=== PATIENT | female | born 1965 | race Caucasian/White ===

== ENCOUNTER → 2016-11-03 | Outpatient (CLI) | payer BC ==
--- NOTE | 2016-11-05 11:13 | MM ---
Reason for exam: screening (asymptomatic). Last mammogram was performed 3 years and 3 months ago. History: Patient is postmenopausal. Family history of breast cancer in grandmother at age 75 and breast cancer in mother at age 55. Physical Findings: A clinical breast exam by your physician is recommended on an annual basis and results should be correlated with mammographic findings. MG Screening Mammo w CAD Bilateral CC and MLO view(s) were taken. Prior study comparison: August 15, 2013, bilateral MG screening mammo w CAD. The breast tissue is heterogeneously dense. This may lower the sensitivity of mammography. There is a 6mm obscured mass in the retroaerolar, slightly lateral right breast. This finding is changed when compared with previous exams. ASSESSMENT: Incomplete: need additional imaging evaluation, BI-RAD 0 RECOMMENDATION: Special view mammogram and ultrasound of the right breast. [facility] will attempt to contact patient to return for supplemental views and ultrasound.
== END | disposition home or self-care (01) ==
LOC: RADMAMWWP 16:22
PROVIDERS: ATTEND Family Medicine
DX: Z12.31 Encounter for screening mammogram for malignant neoplasm of breast (principal)

== ENCOUNTER → 2016-11-18 | Outpatient (CLI) | payer BC ==
--- NOTE | 2016-11-19 10:00 | MM ---
Reason for exam: additional evaluation requested from abnormal screening. Last mammogram was performed less than 1 month ago. History: Patient is postmenopausal. Family history of breast cancer in grandmother at age 75 and breast cancer in mother at age 55. Physical Findings: Nurse Summary: 0.5cm nodule in the right breast behind nipple (nurse kp). MG Work Up Mamm w CAD RT Spot compression CC with magnification, spot compression MLO with magnification, and LM view(s) were taken of the right breast. Prior study comparison: November 03, 2016, bilateral MG screening mammo w CAD. August 15, 2013, bilateral MG screening mammo w CAD. There is no discrete abnormality including area of concern for which an ultrasound is recommended. These results were verbally communicated with the patient and result sheet given to the patient on 11/18/16. ASSESSMENT: Incomplete: need additional imaging evaluation, BI-RAD 0 RECOMMENDATION: Ultrasound of the right breast.
--- NOTE | 2016-11-19 10:01 | USB ---
Reason for exam: additional evaluation requested from abnormal screening. History: Patient is postmenopausal. Family history of breast cancer in grandmother at age 75 and breast cancer in mother at age 55. US Breast Workup Limited RT Right breast ultrasound demonstrates no cystic or solid lesion seen. These results were verbally communicated with the patient and result sheet given to the patient on 11/18/16. ASSESSMENT: Negative, BI-RAD 1 RECOMMENDATION: Return to routine screening mammogram schedule for both breasts.
== END | disposition home or self-care (01) ==
LOC: RADMAMWWP 13:58
PROVIDERS: ATTEND Family Medicine
DX: R92.8 Other abnormal and inconclusive findings on diagnostic imaging of breast (principal)
CPT/HCPCS: 76642; G0206

== ENCOUNTER → 2018-07-28 | Outpatient (CLI) | payer OTHER ==
--- NOTE | 2018-07-29 07:34 | US ---
EXAMINATION TYPE: US thyroid st tissue head/neck DATE OF EXAM: 07/28/2018 COMPARISON: NONE CLINICAL HISTORY: E04.9 Goiter. GLAND SIZE: Right Lobe: 4.2 x 1.5 x 1.4 cm Overall Parenchyma: heterogenous Left Lobe: 4.2 x 0.8 x1.2 cm Overall Parenchyma: heterogeneous Isthmus Thickness: 0.3 cm NODULES RIGHT: # of nodules measured on right: 0 LEFT: # of nodules measured on left: 0 ISTHMUS: # of nodules measured in the isthmus: 0 Bilateral neck scanned, no evidence of lymphadenopathy. IMPRESSION: 1. Normal thyroid ultrasound
== END | disposition home or self-care (01) ==
LOC: RADUSWWP 15:41
PROVIDERS: ATTEND Family Medicine
DX: E04.9 Nontoxic goiter, unspecified (principal)
CPT/HCPCS: 76536

== ENCOUNTER → 2019-01-10 | Outpatient (CLI) | payer OTHER ==
--- NOTE | 2019-01-12 12:19 | MM ---
Reason for exam: screening (asymptomatic). Last mammogram was performed 2 years and 2 months ago. History: Patient is postmenopausal. Family history of breast cancer in maternal grandmother at age 75, breast cancer in mother at age 55, and breast cancer in paternal grandmother. Physical Findings: A clinical breast exam by your physician is recommended on an annual basis and results should be correlated with mammographic findings. MG 3D Screening Mammo W/Cad Bilateral CC and MLO view(s) were taken. Prior study comparison: November 18, 2016, right breast MG work up mamm w CAD RT. November 03, 2016, bilateral MG screening mammo w CAD. The breast tissue is heterogeneously dense. This may lower the sensitivity of mammography. Right upper outer quadrant posterior depth 5mm focal asymmetry. Left central middle depth asymmetry. ASSESSMENT: Incomplete: need additional imaging evaluation, BI-RAD 0 RECOMMENDATION: Special view mammogram of both breasts. If lesion persists on supplemental views, image directed ultrasound is recommended. [facility] will attempt to contact patient to return for supplemental views and ultrasound if indicated.
== END | disposition home or self-care (01) ==
LOC: RADMAMWWP 14:47
PROVIDERS: ATTEND Family Medicine
DX: Z12.31 Encounter for screening mammogram for malignant neoplasm of breast (principal); R92.8 Other abnormal and inconclusive findings on diagnostic imaging of breast
CPT/HCPCS: 77063; 77067

== ENCOUNTER → 2019-01-20 | Outpatient (CLI) | payer OTHER ==
--- NOTE | 2019-01-23 08:41 | MM ---
Reason for exam: additional evaluation requested from abnormal screening. Last mammogram was performed less than 1 month ago. History: Patient is postmenopausal. Family history of breast cancer in maternal grandmother at age 75, breast cancer in mother at age 55, and breast cancer in paternal grandmother at age 68. Physical Findings: Nurse Summary: 0.5cm nodule in the left breast at 4:30 (nurse TM). MG 3D Work Up W/Cad LATANYA Bilateral spot compression CC, spot compression MLO, and LM view(s) were taken. Prior study comparison: January 10, 2019, bilateral MG 3d screening mammo w/cad. November 18, 2016, right breast MG work up mamm w CAD RT. There is a subtle 3mm right upper outer quadrant mass 7-8cm from nipple. The previously seen abnormality resolves on additional views and appears as fibroglandular tissue compatible with summation on the left breast. These results were verbally communicated with the patient and result sheet given to the patient on 01/20/19. ASSESSMENT: Incomplete: need additional imaging evaluation, BI-RAD 0 RECOMMENDATION: Ultrasound of both breasts. (right upper outer quadrant, left at palpable)
--- NOTE | 2019-01-23 08:48 | USB ---
Reason for exam: additional evaluation requested from abnormal screening. History: Patient is postmenopausal. Family history of breast cancer in maternal grandmother at age 75, breast cancer in mother at age 55, and breast cancer in paternal grandmother at age 68. US Breast Workup Limited LATANYA Right limited breast ultrasound including focal area of concern, retroareolar and axilla demonstrates no cystic or solid lesion seen. Left limited breast ultrasound including focal area of concern, retroareolar and axilla demonstrates no cystic or solid lesion seen. No suspicious solid or cystic mass. These results were verbally communicated with the patient and result sheet given to the patient on 01/20/19. ASSESSMENT: Probably benign, BI-RAD 3 RECOMMENDATION: Follow-up diagnostic mammogram of the right breast in 6 months.
== END | disposition home or self-care (01) ==
LOC: RADMAMWWP 14:04
PROVIDERS: ATTEND Family Medicine
DX: R92.8 Other abnormal and inconclusive findings on diagnostic imaging of breast (principal)
CPT/HCPCS: 77066; 76642; G0279; 77062

== ENCOUNTER → 2020-04-12 | Outpatient (CLI) | payer OTHER ==
--- NOTE | 2020-04-12 14:19 | MM ---
Reason for exam: additional evaluation requested from prior study. Last mammogram was performed 1 year and 3 months ago. History: Patient is postmenopausal. Family history of breast cancer in maternal grandmother at age 75, breast cancer in mother at age 55, and breast cancer in paternal grandmother at age 68. Physical Findings: Nurse did not find any significant physical abnormalities on exam. MG 3D Diag Mammo W/Cad LATANYA Bilateral CC and MLO view(s) were taken. Prior study comparison: January 20, 2019, bilateral MG 3d work up w/cad LATANYA. January 10, 2019, bilateral MG 3d screening mammo w/cad. November 03, 2016, bilateral MG screening mammo w CAD. There are scattered fibroglandular densities. No significant new findings when compared with previous films. These results were verbally communicated with the patient and result sheet given to the patient on 04/12/20. ASSESSMENT: Benign, BI-RAD 2 RECOMMENDATION: Routine screening mammogram of both breasts in 1 year.
== END | disposition home or self-care (01) ==
LOC: RADMAMWWP 13:31
PROVIDERS: ATTEND Family Medicine
DX: N60.11 Diffuse cystic mastopathy of right breast (principal); N60.12 Diffuse cystic mastopathy of left breast
CPT/HCPCS: 77066; G0279; 77062

== ENCOUNTER → 2022-07-03 | Outpatient (CLI) | payer OTHER ==
--- NOTE | 2022-07-06 19:31 | MM ---
Reason for Exam: Screening (asymptomatic). Last mammogram was performed 2 year(s) and 2 month(s) ago. Patient History: Menarche at age 14. First Full-Term at age 20. Postmenopausal. Paternal grandmother had breast cancer, age 68. Maternal grandmother had breast cancer, age 75. Mother had breast cancer, age 55. Risk Values: Micaela 5 year model risk: 2.4%. NCI Lifetime model risk: 12.7%. Prior Study Comparison: 01/10/2019 Bilateral Screening Mammogram, [facility]. 01/20/2019 Bilateral Diagnostic Mammogram, [facility]. 04/12/2020 Bilateral Diagnostic Mammogram, [facility]. Tissue Density: There are scattered fibroglandular densities. Findings: Analyzed By CAD. There is no suspicious group of microcalcifications or new suspicious mass in either breast. Overall Assessment: Negative, BI-RAD 1 Management: Screening Mammogram of both breasts in 1 year. 1. Patient should continue monthly self breast exams. 2. A clinical breast exam by your physician is recommended on an annual basis. 3. This exam should not preclude additional follow-up of suspicious palpable abnormalities. Electronically signed and approved by: Mita Velásquez M.D. Radiologist
== END | disposition home or self-care (01) ==
LOC: RADMAMWWP 14:38
PROVIDERS: ATTEND Family Medicine
DX: Z12.31 Encounter for screening mammogram for malignant neoplasm of breast (principal); Z78.0 Asymptomatic menopausal state; Z80.3 Family history of malignant neoplasm of breast
CPT/HCPCS: 77063; 77067

== ENCOUNTER → 2023-05-06 | Outpatient (CLI) | payer OTHER ==
--- NOTE | 2023-05-06 21:09 | CTL ---
EXAMINATION TYPE: CT Low Dose Lung DATE OF EXAM: 05/06/2023 4:44 PM CLINICAL INDICATION:Female, 57 years old with history of Z12.2 Lung cancer screening; Former smoker. Pt quit smoking 3yrs ago. 2PPD x30yrs. Cough x3mo and wheezing. , history of tobacco use. COMPARISON: None. TECHNIQUE: Multiple axial non-contrast scans were obtained from approximately the lung apices through the upper abdomen. Coronal and sagittal reformatted images were obtained. Low dose technique was uti lized. CT DLP: 93.5 mGycm, Automated exposure control for dose reduction was used. CT Contrast: Contrast used: None Oral contrast used: None FINDINGS: ======== Lack of intravenous contrast and low dose technique limits the evaluation of the vascular and soft ti ssue structures. LUNGS: No evidence of pulmonary fibrosis. No evidence of focal consolidation, pneumothorax or pleural effusion. Mild centrilobular emphysema changes. Nodules: RUL: Scattered pulmonary nodules image 17 and 18 series 5 measuring 2 mm each. RML: None. RLL: Calcified granuloma image 31 series 5 [place]: 3 mm 2 image 18 series 5, 2 mm image 25 LLL: 6 mm image 40 series 5 AIRWAY: Patent and unremarkable. HEART: Size within normal limits. MEDIASTINUM: No gross evidence of adenopathy. Small hiatal hernia. VASCULATURE: No aortic aneurysm. MUSCULOSKELETAL: No acute osseous abnormalities SOFT TISSUES/LYMPH NODES: Unremarkable. LOWER NECK: No significant findings. UPPER ABDOMEN: No significant findings. IMPRESSION: 1. Scattered pulmonary nodules measuring less than 6 mm 2. Mild emphysema changes. 3. Small hiatal hernia. CT LUNG RAD AND CT CHEST RECOMMENDATION: Lung-Rad 2 Benign Appearance or Behavior: Continue annual sc reening with LDCT in 12 months. S Modifier (other clinically significant findings): None Recommend smoking cessation (if current smoker), or continuation of smoking cessation (if prior smoke r). Annual screening for lung cancer with low-dose computed tomography is recommended in adults ages 55 to 77 years who have a 30 pack-year smoking history and currently smoke or have quit within the pa st 15 years. Screening should be discontinued once a person has not smoked for 15 years or develops a health problem that substantially limits life expectancy or the ability or willingness to have curat darren lung surgery. Lung rads 2021 [email or web address]
== END | disposition home or self-care (01) ==
LOC: RADCTMAIN 16:21
PROVIDERS: ATTEND Family Medicine
DX: Z12.2 Encounter for screening for malignant neoplasm of respiratory organs (principal); J43.9 Emphysema, unspecified; K44.9 Diaphragmatic hernia without obstruction or gangrene; Z87.891 Personal history of nicotine dependence
CPT/HCPCS: 71271

== ENCOUNTER → 2024-02-02 | Outpatient (CLI) | payer OTHER ==
--- NOTE | 2024-02-02 16:07 | MM ---
Reason for Exam: Clinical finding. Last mammogram was performed 1 year(s) and 7 month(s) ago. Indicated Problems: Lump or thickening of the right side for 3 Month(s). Patient History: Menarche at age 14. First Full-Term at age 20. Postmenopausal. Paternal grandmother had breast cancer, age 68. Maternal grandmother had breast cancer, age 75. Mother had breast cancer, age 55. Risk Values: Micaela 5 year model risk: 2.5%. NCI Lifetime model risk: 12.4%. Prior Study Comparison: 06/08/2006 Bilateral Screening Mammogram, [facility]. 06/22/2006 Left Diagnostic Mammogram, [facility]. 08/15/2013 Bilateral Screening Mammogram, [facility]. 11/03/2016 Bilateral Screening Mammogram, [facility]. 11/18/2016 Right Diagnostic Mammogram, [facility]. 11/18/2016 Right Diagnostic Ultrasound, [facility]. 01/10/2019 Bilateral Screening Mammogram, [facility]. 01/20/2019 Bilateral Diagnostic Mammogram, [facility]. 01/20/2019 Bilateral Diagnostic Ultrasound, [facility]. 04/12/2020 Bilateral Diagnostic Mammogram, [facility]. 07/03/2022 Bilateral MG 3D screening mammo w/cad, [facility]. Tissue Density: There are scattered areas of fibroglandular density. Findings: Analyzed By CAD. Bilateral areas of asymmetric density remain unchanged. Palpable marker placed along the medial aspect of the right breast. No underlying discrete abnormality is seen. No significant change from prior exams. Overall Assessment: Incomplete: need additional imaging evaluation, BI-RAD 0 Management: Diagnostic Breast Ultrasound of the right breast. Targeted to the patient's palpable site. [facility], , 02/02/2024 4:02 PM. Electronically signed and approved by: Mita Velásquez M.D. Radiologist
--- NOTE | 2024-02-02 16:35 | USB ---
Reason for Exam: Clinical finding. Patient History: Menarche at age 14. First Full-Term at age 20. Postmenopausal. Paternal grandmother had breast cancer, age 68. Maternal grandmother had breast cancer, age 75. Mother had breast cancer, age 55. Risk Values: Micaela 5 year model risk: 2.5%. NCI Lifetime model risk: 12.4%. Technique: Method: Targeted. Prior Study Comparison: 01/20/2019 Bilateral Diagnostic Mammogram, [facility]. 04/12/2020 Bilateral Diagnostic Mammogram, [facility]. 07/03/2022 Bilateral MG 3D screening mammo w/cad, [facility]. Findings: The area of palpable concern of the right breast, the axilla of the right breast and the retroareolar of the right breast were scanned. Targeted ultrasound of the patient's palpable site right breast 3:00 position, 7 cm from the nipple. Additional scanning in the subareolar region and axilla. At the palpable site, there are a couple very vague circumscribed isoechoic areas just deep to the skin surface. These measure 1.5 cm each and may represent small lipomas. No other solid or cystic lesion or axillary lymphadenopathy. Overall Assessment: Benign, BI-RAD 2 Management: Screening Mammogram of both breasts in 1 year. Further clinical follow-up for what appear to be benign lipomas at the patient's right breast 3:00 palpable site. If any changes are encountered, the area can be rescanned. A clinical breast exam by your physician is recommended on an annual basis and results should be correlated with mammographic findings. This exam should not preclude additional follow-up of suspicious palpable abnormalities. Results were given to the patient verbally at the time of exam. [facility], , 02/02/2024 4:32 PM. Electronically signed and approved by: Mita Velásquez M.D. Radiologist
== END | disposition home or self-care (01) ==
LOC: RADMAMWWP 14:26
PROVIDERS: ATTEND Family Medicine
CPT/HCPCS: 77062; 77066

== ENCOUNTER → 2024-06-20 | Outpatient (CLI) | payer OTHER ==
--- NOTE | 2024-06-20 15:43 | CTL ---
EXAMINATION TYPE: CT Low Dose Lung DATE OF EXAM ORDERED: 06/20/2024 COMPARISON: CT Low Dose Lung 05/06/2023 CLINICAL INDICATION: Female, 59 years old with history of Z12.2 ENCNTR SCREEN FO Z87.891 NICOTINE DEP ENDENCE; [facility], Former smoker, quit 2017, was 1 ppd x 36 years hx COPD, Lung cancer screening, History of Smoking/tobacco use. TECHNIQUE: Low dose computed tomography scan was performed through the chest at 1 mm thick sections a nd reconstructed images in multiple planes at 1 mm and [address] DLP: 86.[address] CTDI: 2.4 mGy Automated exposure control for dose reduction was used. CT DIAGNOSTIC QUALITY: Satisfactory FINDINGS: Nodules: Few scattered calcified granulomas. Stable left upper lobe 3 mm pulmonary nodule (series 4, image 65). Stable right upper lobe 2 mm pulmonary nodule (series 4, image 50). No new or enlarging pulmonary nodules. LUNGS: COPD: Severity: Minimal centrilobular emphysematous changes. Fibrosis: Severity: None Lymph nodes: None Other findings: Right hilar calcified granulomas. RIGHT PLEURAL SPACE: Effusion: None Calcification: None Thickening: None Pneumothorax: None LEFT PLEURAL SPACE: Effusion: None Calcification: None Thickening: None Pneumothorax: None HEART: Heart Size: Normal Coronary Calcification: None Pericardial Effusion: None OTHER FINDINGS: Upper abdomen: None Bony thorax: None Supraclavicular region: None Other: Mild atherosclerotic calcification of the aorta and its branches. IMPRESSION: 1. Couple of stable pulmonary nodules measuring 3 mm or less. No new or enlarging pulmonary nodules. 2. Minimal emphysematous changes. 3. Sequelae of prior granulomatous disease. CT LUNG RAD AND CT CHEST RECOMMENDATION: Lung-Rad 2 Benign Appearance or Behavior: Continue annual sc reening with LDCT in 12 months. S Modifier (other clinically significant findings): None [facility], , 06/20/2024 3:41 PM
== END | disposition home or self-care (01) ==
LOC: RADCTMAIN 14:51
PROVIDERS: ATTEND Family Medicine
DX: Z12.2 Encounter for screening for malignant neoplasm of respiratory organs (principal); R91.8 Other nonspecific abnormal finding of lung field; J43.9 Emphysema, unspecified; Z87.891 Personal history of nicotine dependence
CPT/HCPCS: 71271